=== PATIENT | female | born 1980 | race Caucasian/White ===

== ENCOUNTER 2017-06-04 12:53 | Emergency (ER) | payer OTHER ==
[~2017-06-04] VITALS: Ht 167.6 cm; Wt 99.8 kg
[2017-06-04] MEDS ORDERED: IV NORMAL SALINE 1,000ML 1,000 ML IV SCH (13:07)
--- NOTE | 2017-06-04 13:12 | PHYS DOC ---
Past History Past Medical History: No Pertinent History Past Surgical History: Cholecystectomy, , Hysterectomy Smoking: Cigarettes, Greater than 1 pack/day Alcohol Use: Occasionally Drug Use: None Adult General Chief Complaint Chief Complaint: ABDOMINAL PAIN [facility] HPI Patient is an overweight 36-year-old female with a history of prior cholecystectomy, prior partial hysterectomy presents with sudden onset of right flank pain right upper abdominal pain that began after a run for training. Patient was running for training stopped and was transitioned to doing some combative work when she had a sudden searing pain along the incisional scar side of her right abdomen. She says it "feels like I just had my gallbladder removed again. The pain is located underneath the right ribs and radiates to the epigastrium. It is described as sharp stabbing and burning sensation. There is no trauma axis so she with this particular injury. Patient is not short of breath does not feel nauseated there is no diarrhea or vomiting associated with this issue. Patient denies any prior event like this in the past. She denies any focal neurologic deficits, weakness, sick contacts at home with similar symptoms denies any antibiotics or travel outside the country. Patient's pain is 6 of 10 at this time but worse with movements. She is not trying to eat. Patient's pain are worse with direct pressure of the abdomen is well Review of Systems Review of Systems Constitutional: Denies fever or chills [] Eyes: Denies change in visual acuity, redness, or eye pain [] HENT: Denies nasal congestion or sore throat [] Respiratory: Denies cough or shortness of breath [] Cardiovascular: No additional information not addressed in HPI [] GI: Patient is mainly his abdominal pain without nausea vomiting or diarrhea no constipation. : Denies dysuria or hematuria [] Musculoskeletal: Denies back pain or joint pain [] Integument: Denies rash or skin lesions [] Neurologic: Denies headache, focal weakness or sensory changes [] Endocrine: Denies polyuria or polydipsia [] All other systems were reviewed and found to be within normal limits, except as documented in this note. Allergies Allergies Allergies Coded Allergies Type Severity Reaction Last Updated Verified No Known Drug Allergies 06/04/17 No Physical Exam Physical Exam Other vital signs recorded on the chart patient noted to be normal Constitutional: Well developed, well nourished, patient is holding her right upper quadrant she is in no acute distress but obviously uncomfortable[] HENT: Normocephalic, atraumatic, bilateral external ears normal, oropharynx moist, no oral exudates, nose normal. [] Cardiovascular:Heart rate regular rhythm, no murmur [] Lungs & Thorax: Bilateral breath sounds clear to auscultation [] Abdomen: Bowel sounds normal, she does have tenderness in the right upper quadrant although not reproducible there is no Louis's or McBurney's point tenderness to palpation. There is no Hung Lambert sign no palpable mass or pulsatile mass. Skin: Warm, dry, no erythema, no rash. [] Back: No tenderness, no CVA tenderness. [] Extremities: No tenderness, Neurologic: Alert and oriented X 3, normal motor function, normal sensory function, no focal deficits noted. [] Psychologic: Patient is somewhat anxious but nondiaphoretic with normal judgment. [] Current Patient Data Vital Signs Vital Signs Date Time Temp Pulse Resp B/P (MAP) Pulse Ox O2 Delivery O2 Flow Rate FiO2 06/04/17 13:01 98.4 106 20 99 EKG EKG [] Radiology/Procedures Radiology/Procedures [] [place] [address] IMAGING REPORT Signed PATIENT: BRIGITTE OSORIO ACCOUNT: [id number] : 1980 LOCATION: ER AGE: 36 SEX: F EXAM STATUS: REG ER ORD. PHYSICIAN: ARIES GAYTAN MD REASON: right ab pain PROCEDURE: CT ABD PELV W/ IV CONTRST ONLY EXAM: Abdomen and pelvis CT with intravenous contrast. HISTORY: Pain. TECHNIQUE: Computed tomographic images of the abdomen and pelvis were obtained following the administration of 75 cc Omnipaque 300 intravenous contrast. Multiplanar reformatting was performed. *One or more of the following individualized dose reduction techniques were utilized for this examination: 1. Automated exposure control. 2. Adjustment of the mA and/or kV according to patient size. 3. Use of iterative reconstruction technique. COMPARISON: None. FINDINGS: Evaluation of the lower thorax demonstrates no infiltrate, effusion or suspicious pulmonary nodule. No hepatic lesion is seen. The gallbladder is surgically absent. The pancreas, spleen, adrenal glands and kidneys are unremarkable. The appendix is normal in appearance. No abnormally thickened or dilated loop of bowel is seen. The bladder is unremarkable. There are multiple right greater than left ovarian follicles and small follicular cysts, the largest of which on the right measures 2.0 cm. The uterus is surgically absent. There is no suspicious osseous lesion. IMPRESSION: 1. Multiple right greater than left ovarian follicles and small follicular cysts, the largest of which measures 2.0 cm on the right. 2. Findings consistent with prior cholecystectomy and hysterectomy. Electronically signed by: Olga Mireles MD (06/04/2017 1:52 PM) [place] [id number] DICTATED AND SIGNED BY: OLGA MIRELES MD DATE: 06/04/17 2736 CC: ARIES GAYTAN MD; PCP,NO ~ Course & Med Decision Making Course & Med Decision Making Pertinent Labs and Imaging studies reviewed. (See chart for details) []Patient presents with sudden onset of right upper quadrant abdominal pain. Differential diagnosis at this time considered Acute pancreatitis. Appendicitis. Acute hepatitis. Peptic ulcer disease. Nonulcer dyspepsia. Irritable bowel disease. Functional gallbladder disorder. Sphincter of Oddi dysfunction. Diseases of the right kidney. Right-sided pneumonia. Wagp-Ztdl-Imgdzs syndrome Subhepatic or intraabdominal abscess. Perforated viscus. Cardiac ischemia. Black spider envenomation UTI, pyonephritis, kidney stone, abdominal aneurysm, also consider pneumothorax or pneumomediastinum as a sudden onset of cause of her pain. Patient was given fluids, pain medications and an appropriate CT scan of the abdomen pelvis to rule out perforation or other issues. Patient presented with right upper quadrant/flank pain that began acutely after running and beginning combativeness although she had no direct trauma I believe the patient may have sustained a traumatic injury to the abdominal wall due to deconditioning. Patient's CBC, CMP, urine. Not suggest an abnormality within the abdomen and pelvis. CT scan abdomen and pelvis demonstrates no acute abdominal wall injury, no right lower lobe pneumonia, no evidence of inflammation or infection within the bowel, there are ovarian cysts bilaterally but no free fluid in the abdomen. Patient is resting comfortably after the Toradol fluids and antiemetics. She declined the narcotics for sake of her job. Has a patient's abdominal wall pain I will give her an anti-inflammatory muscle reaction to help with her symptoms. Encourage her to use warm compresses and stretching exercises to improve her symptoms. Doubt serious abdominal surgical issue at this time. discharge: I've spoken with the patient and/or caregivers. I've explained the patient's condition, diagnosis and treatment plan based on information available to me at this time. I've answered the patient's and/or caregivers questions and addressed any concerns. The patient and/or caregivers have a good understanding the patient's diagnosis, condition and treatment plan as can be expected at this point. Vital signs have been stabilized. The patient's condition is stable for discharge from the emergency department. The patient will pursue further outpatient evaluation with her primary care provider or other designated consulting physician as outlined in the discharge instructions. Patient and/or caregivers are agreeable to this plan of care and follow-up instructions have been explained in detail. The patient and/or caregivers have received these instructions in written format and expressed understanding of these discharge instructions. The patient and her caregivers are aware that if any significant change in condition or worsening of symptoms should prompt him to immediately return to this of the closest emergency department. If an emergent department is not readily available I would encourage him to call 911. Francheska Disclaimer Dragon Disclaimer This electronic medical record was generated, in whole or in part, using a voice recognition dictation system. Departure Departure: Impression: Primary Impression: Intercostal muscle strain Additional Impressions: Intercostal muscle pain Abdominal wall pain in right upper quadrant Disposition: 01 HOME, SELF-CARE Condition: STABLE Referrals: PCP,NO (PCP) Patient Instructions: Abdominal Pain, Chest Wall Pain Additional Instructions: discharge: I've spoken with the patient and/or caregivers. I've explained the patient's condition, diagnosis and treatment plan based on information available to me at this time. I've answered the patient's and/or caregivers questions and addressed any concerns. The patient and/or caregivers have a good understanding the patient's diagnosis, condition and treatment plan as can be expected at this point. Vital signs have been stabilized. The patient's condition is stable for discharge from the emergency department. The patient will pursue further outpatient evaluation with her primary care provider or other designated consulting physician as outlined in the discharge instructions. Patient and/or caregivers are agreeable to this plan of care and follow-up instructions have been explained in detail. The patient and/or caregivers have received these instructions in written format and expressed understanding of these discharge instructions. The patient and her caregivers are aware that if any significant change in condition or worsening of symptoms should prompt him to immediately return to this of the closest emergency department. If an emergent department is not readily available I would encourage him to call 911. Scripts Methocarbamol (ROBAXIN-750) 750 Mg Tablet 1 TAB PO BID, #20 TAB Prov: ARIES GAYTAN MD 06/04/17 Naproxen (NAPROSYN) 500 Mg Tablet 1 TAB PO BID, #20 TAB 1 Refill Prov: ARIES GAYTAN MD 06/04/17 Problem Qualifiers ARIES GAYTAN MD Jun 04, 2017 13:12
[2017-06-04] MEDS ORDERED: MORPHINE SULFATE 4 MG/ML DISP.SYRIN. IV/SQ PRN (13:15)
[2017-06-04] MEDS ORDERED: 0.9 % SODIUM CHLORIDE 10 ML DISP.SYRIN. IV PRN (13:15)
[2017-06-04] MEDS ORDERED: IOHEXOL 300 MG/ML 75 ML VIAL. IV ONE (13:15)
[2017-06-04] MEDS ORDERED: ONDANSETRON PF 4 MG/2 ML VIAL. IV ONE (13:30)
[2017-06-04] MEDS ORDERED: KETOROLAC 30 MG/ML VIAL. IV ONE (13:30)
[2017-06-04 13:38] LABS: BASO # 0.1 x10^3/uL (0.0-0.2); BASO % 1 % (0-3); EOS # 0.1 x10^3/uL (0.0-0.7); EOS % 1 % (0-3); HEMATOCRIT 41.8 % (36.0-47.0); HEMOGLOBIN 14.5 g/dL (12.0-15.5); LYMPH # 1.9 x10^3/uL (1.0-4.8); LYMPH % 20 % (24-48); MEAN CORPUSCULAR HEMOGLOBIN 31 pg (25-35); MEAN CORPUSCULAR HGB CONC 35 g/dL (31-37); MEAN CORPUSCULAR VOLUME 89 fL (79-100); MONO # 0.4 x10^3/uL (0.0-1.1); MONO % 4 % (0-9); NEUT % 74 % (31-73); PLATELET COUNT 205 x10^3/uL (140-400); RED BLOOD COUNT 4.69 x10^6/uL (3.50-5.40); RED CELL DISTRIBUTION WIDTH 13.3 % (11.5-14.5); WHITE BLOOD COUNT 9.4 x10^3/uL (4.0-11.0)
[2017-06-04 13:50] LABS: ALBUMIN 3.8 g/dL (3.4-5.0); CALCIUM 8.9 mg/dL (8.5-10.1); CREATININE 0.7 mg/dL (0.6-1.0); DIRECT BILIRUBIN 0.1 mg/dL (0.0-0.2); GFR 94.7; POTASSIUM 3.6 mmol/L (3.5-5.1); TOTAL BILIRUBIN 0.3 mg/dL (0.2-1.0); TOTAL PROTEIN 6.8 g/dL (6.4-8.2)
--- NOTE | 2017-06-04 13:55 | RAD ---
EXAM: Abdomen and pelvis CT with intravenous contrast. HISTORY: Pain. TECHNIQUE: Computed tomographic images of the abdomen and pelvis were obtained following the administration of 75 cc Omnipaque 300 intravenous contrast. Multiplanar reformatting was performed. *One or more of the following individualized dose reduction techniques were utilized for this examination: 1. Automated exposure control. 2. Adjustment of the mA and/or kV according to patient size. 3. Use of iterative reconstruction technique. COMPARISON: None. FINDINGS: Evaluation of the lower thorax demonstrates no infiltrate, effusion or suspicious pulmonary nodule. No hepatic lesion is seen. The gallbladder is surgically absent. The pancreas, spleen, adrenal glands and kidneys are unremarkable. The appendix is normal in appearance. No abnormally thickened or dilated loop of bowel is seen. The bladder is unremarkable. There are multiple right greater than left ovarian follicles and small follicular cysts, the largest of which on the right measures 2.0 cm. The uterus is surgically absent. There is no suspicious osseous lesion. IMPRESSION: 1. Multiple right greater than left ovarian follicles and small follicular cysts, the largest of which measures 2.0 cm on the right. 2. Findings consistent with prior cholecystectomy and hysterectomy. Electronically signed by: Olga Raman MD (06/04/2017 1:52 PM) [id number]
[2017-06-04 14:13] LABS: BILIRUBIN,URINE NEG (NEG); CLARITY,URINE HAZY; COLOR,URINE YELLOW; GLUCOSE,URINE NEG (NEG)
[2017-06-04 14:14] LABS: BACTERIA,URINE FEW /HPF (0-FEW); NITRITE,URINE NEG (NEG); RBC,URINE RARE /HPF (0-2); SQUAMOUS EPITHELIAL CELL,UR MOD /LPF; UROBILINOGEN,URINE 0.2 mg/dL (0.2 mg/dL); WBC,URINE RARE /HPF (0-4)
[2017-06-04] MEDS ORDERED: NAPR-683 PO (14:27)
[2017-06-04] MEDS ORDERED: METH-38 PO (14:27)
--- NOTE | 2017-06-04 14:39 | EKG ---
[address] [address] Test Date: 2017-06-04 Test Time: 13:58:56 Pat Name: BRIGITTE OSORIO Department: Room: Gender: F Patient Assessment Coordinator: STEFANIE : 1980 Requested By: ARIES GAYTAN Order Number: [id number] Reading MD: Donny Cantu MD Measurements Intervals [place] Rate: 87 P: 31 MD: 160 QRS: 24 QRSD: 88 T: 1 QT: 376 QTc: 453 Interpretive Statements SINUS RHYTHM Electronically Signed On 06-10-2017 12:45:42 SHIPPING CLERK/ADMIN by Donny Cantu MD
[2017-06-04 14:40] VITALS: BP 105/74
== END 2017-06-04 14:50 | disposition home or self-care (01) ==
LOC: ER 12:53
DX: S29.011A Strain of muscle and tendon of front wall of thorax, initial encounter (principal); R10.11 Right upper quadrant pain; F17.210 Nicotine dependence, cigarettes, uncomplicated; Z90.49 Acquired absence of other specified parts of digestive tract; Z90.710 Acquired absence of both cervix and uterus; Z98.890 Other specified postprocedural states; X58.XXXA Exposure to other specified factors, initial encounter; Y93.02 Activity, running; Y99.8 Other external cause status; Y92.89 Other specified places as the place of occurrence of the external cause
CPT/HCPCS: 36415; 74177; 80048; 80076; 81001; 83690; 84484; 85025; 93005; 96361; 96374; 96375; 99285; J1885; J2405; Q9967; J7030

== ENCOUNTER → 2019-10-07 | Outpatient (CLI) | payer OTHER ==
[~2019-10-07] MED LIST: METH-38 PO; NAPR-683 PO
--- NOTE | 2019-10-07 16:35 | RAD ---
EXAM: 3 views left ankle DATE: 10/07/2019 12:00 AM INDICATION: INJURY 2 WEEKS AGO, LEFT ANKLE PAIN. NOT GETTING ANY BETTER / Spl. Instructions: / History: COMPARISON: No Prior FINDINGS: No evidence of acute fracture or dislocation. Ankle mortise is congruent. Talar dome is intact. Mild soft tissue swelling about the lateral malleolus. Small posterior calcaneal osteophyte. IMPRESSION: No evidence of acute fracture or dislocation. If there is clinical concern for internal derangement or occult fracture, MRI would provide additional details. Electronically signed by: Fabian Whatley MD (10/07/2019 4:32 PM) [id number]
== END ==
LOC: DXRAD 15:59
PROVIDERS: ATTEND Family Medicine
DX: M25.472 Effusion, left ankle (principal); M25.772 Osteophyte, left ankle
CPT/HCPCS: 73610